=== PATIENT | male | born 1945 | race Caucasian/White ===

== ENCOUNTER 2017-07-11 18:21 | Emergency (ER) | payer MEDICAID, MEDICARE, OTHER ==
[~2017-07-11] VITALS: Ht 152.4 cm; Wt 77.5 kg
[2017-07-11 19:26] LABS: HEMATOCRIT 33.7 % (39.2-51.8); HEMOGLOBIN 11.6 g/dL (13.7-18.0); WHITE BLOOD COUNT 6.4 x10^3/uL (3.4-10)
[2017-07-11 19:38] LABS: ASPARTATE AMINO TRANSFERASE 25 U/L (15-37); BLOOD UREA NITROGEN 23 mg/dL (7-18)
[2017-07-11] MEDS ORDERED: KETOROLAC 30 MG/1 ML ONE (20:45)
[2017-07-11] MEDS ORDERED: KETOROLAC 30 MG/1 ML IVPush ONE (21:00)
[2017-07-11] MEDS ORDERED: OMNIPAQUE 350 MG/ML, 100ML BOTTLE ONE (21:21)
[2017-07-12 00:11] VITALS: BP 125/77
== END 2017-07-12 00:36 | disposition home or self-care (01) ==
LOC: ED 21:43
DX: K57.32 Diverticulitis of large intestine without perforation or abscess without bleeding (principal); Z59.0 Homelessness
CPT/HCPCS: 36415; 74177; 80053; 81001; 83690; 85025; 87086; 96374; 99285; J1885; Q9967

== ENCOUNTER 2018-06-11 20:58 | Emergency (ER) | payer MEDICARE ==
[~2018-06-11] VITALS: Ht 180.3 cm; Wt 74.0 kg
[2018-06-11 21:03] VITALS: BP 132/74
[2018-06-11] MEDS ORDERED: ACETAMINOPHEN 500 MG TABLET PO ONE (21:30)
[2018-06-11] MEDS ORDERED: ACETAMINOPHEN 500 MG TABLET ONE (21:33)
[2018-06-11 21:50] LABS: BASOPHILS % (AUTO) 1 % (0-1); EOSINOPHILS # (AUTO) 0.01 x10^3/uL (0-0.4); EOSINOPHILS % (AUTO) 0 % (1-7); LYMPHOCYTES # (AUTO) 2.08 x10^3/uL (1-3.4); LYMPHOCYTES % (AUTO) 14 % (22-44); MD NO; MEAN CORPUSCULAR VOLUME 97.1 fL (81-97); MEAN PLATELET VOLUME 9.5 fL (7.4-10.4); MONOCYTES # (AUTO) 0.98 x10^3/uL (0.2-0.8); MONOCYTES % (AUTO) 7 % (2-9); NEUTROPHILS # (AUTO) 11.57 x10^3/uL (1.8-6.8); NEUTROPHILS % (AUTO) 79 % (42-75); PLATELET COUNT 166 x10^3/uL (130-400); RED BLOOD COUNT 3.57 x10^6/uL (4.38-5.82); RED CELL DISTRIBUTION WIDTH 13.7 % (9.4-14.8)
[2018-06-11 21:52] LABS: ALBUMIN 2.8 g/dL (3.4-5.0); ANION GAP 8 mmol/L (5-15); CALCIUM 8.7 mg/dL (8.5-10.1); CHLORIDE 107 mmol/L (98-107); CREATININE 1.64 mg/dL (0.7-1.3)
== END 2018-06-11 22:13 | disposition home or self-care (01) ==
LOC: ED 22:07
DX: M25.562 Pain in left knee (principal); M25.561 Pain in right knee; J20.9 Acute bronchitis, unspecified; Z59.0 Homelessness; F17.200 Nicotine dependence, unspecified, uncomplicated
CPT/HCPCS: 36415; 80048; 82040; 85025; 99285